=== PATIENT | female | born 1995 | race Asian ===

== ENCOUNTER 2017-01-07 15:39 | Inpatient (IN) | payer BC ==
[~2017-01-07] VITALS: Ht 154.9 cm; Wt 52.0 kg
[2017-01-07 15:47] VITALS: BP 136/76; PULSE 97; RESP 16; TEMP 99.9; O2SAT 99
[2017-01-07] MEDS ORDERED: SODIUM CHLOR 0.9% 1000 ML INJ 1,000 ML IV SCH (15:51)
[2017-01-07] MEDS ORDERED: BIRTH CONTROL PO (15:53)
[2017-01-07] MEDS ORDERED: CLINDAMYCIN INJ 600 MG in SODIUM CHLORIDE 0.9% INJ 100 ML IV ONE (16:00)
[2017-01-07] MEDS ORDERED: methylPREDNISolone SOD SUCC 125 MG/2 ML VIAL IV PUSH ONE (16:00)
--- NOTE | 2017-01-07 16:34 | PD ---
HPI Chief Complaint: ENT Complaint Time Seen by Provider: 15:50 Travel History International Travel<30 days: No Contact w/Intl Traveler<30days: No Traveled to known affect area: No History of Present Illness HPI 21-year-old female that presents to the ED for evaluation of peritonsillar abscess. Patient was seen at an urgent care and apparently was seen at a different urgent care before. Patient was seen in urgent care about a couple of weeks ago and was started on amoxicillin. Symptoms do not improve. Patient went to a different urgent care was turned azithromycin and a Medrol Dosepak. Patient was evaluated again today by a different urgent care and the physician at the facility order a CT with contrast. CT was done and was found to have a peritonsillar abscess. She was told to come here for possible surgery versus IV antibiotics. Apparently the physician at the urgent care contacted Dr. Galeana for ear nose and throat who agreed with this plan. Patient voices pain on her throat secondary to the swelling. She states that she cannot swallow solid secondary to pain. She denies any discharge. She is able to breathe no sign of acute distress. She denies any fevers chills or sweats. She denies any history of this in the past. Allergy to possibly iodine. [facility] Past Medical History Medical History: Denies Significant Hx ?: Not Past Surgical History Surgical History: No Previous Surgery Social History Alcohol Use: Yes (SOCIALLY) Tobacco Use: No Substance Use: Yes (MARIJUANA) Allergies-Medications (Allergen,Severity, Reaction): Coded Allergies: Iodinated Contrast- Oral and IV Dye (Verified Allergy, Severe, Hives, ) Reported Meds & Prescriptions Reported Meds & Active Scripts Active Reported [ Control] 1 Tab PO DAILY Review of Systems Except as stated in HPI: all other systems reviewed are Neg Physical Exam Narrative GENERAL: SKIN: Warm and dry. HEAD: Atraumatic. Normocephalic. EYES: Pupils equal and round. No scleral icterus. No injection or drainage. ENT: No nasal bleeding or discharge. Mucous membranes pink and moist. Tongue is midline. Patient does have soft tissue swelling of both tonsils. Hard to assess secondary to patient's discomfort. No obvious uvula deviation noted however. Patient does have some hoarse voice noted. Some anterior cervical lymphadenopathy noted. NECK: Trachea midline. No JVD. CARDIOVASCULAR: Regular rate and rhythm. RESPIRATORY: No accessory muscle use. Clear to auscultation. Breath sounds equal bilaterally. GASTROINTESTINAL: Abdomen soft, non-tender, nondistended. Hepatic and splenic margins not palpable. MUSCULOSKELETAL: Extremities without clubbing, cyanosis, or edema. No obvious deformities. Full range of motion of the upper and lower extremities bilaterally. 2+ pulses bilaterally. NEUROLOGICAL: Awake and alert. No obvious cranial nerve deficits. Motor grossly within normal limits. Five out of 5 muscle strength in the arms and legs. Normal speech. PSYCHIATRIC: Appropriate mood and affect; insight and judgment normal. Data Data Last Documented VS Vital Signs Date Time Temp Pulse Resp B/P (MAP) Pulse Ox O2 Delivery O2 Flow Rate FiO2 01/07/17 17:15 100.3 92 20 119/70 (86) 100 Room Air Orders Orders Methylprednisolone So Succ Inj (Solumedr (01/07/17 16:00) Clindamycin Inj (Cleocin Inj) (01/07/17 16:00) Complete Blood Count With Diff (01/07/17 15:51) Basic Metabolic Panel (Bmp) (01/07/17 15:51) Magnesium (Mg) (01/07/17 15:51) Lactic Acid (01/07/17 15:51) Sodium Chlor 0.9% 1000 Ml Inj (Ns 1000 M (01/07/17 15:51) Ketorolac Inj (Toradol Inj) (01/07/17 16:45) Labs Laboratory Tests Test 01/07/17 16:20 White Blood Count 15.6 TH/MM3 Red Blood Count 4.28 MIL/MM3 Hemoglobin 11.8 GM/DL Hematocrit 35.8 % Mean Corpuscular Volume 83.8 FL Mean Corpuscular Hemoglobin 27.5 PG Mean Corpuscular Hemoglobin Concent 32.9 % Red Cell Distribution Width 13.1 % Platelet Count 279 TH/MM3 Mean Platelet Volume 8.8 FL Neutrophils (%) (Auto) 85.3 % Lymphocytes (%) (Auto) 7.1 % Monocytes (%) (Auto) 7.4 % Eosinophils (%) (Auto) 0.1 % Basophils (%) (Auto) 0.1 % Neutrophils # (Auto) 13.3 TH/MM3 Lymphocytes # (Auto) 1.1 TH/MM3 Monocytes # (Auto) 1.2 TH/MM3 Eosinophils # (Auto) 0.0 TH/MM3 Basophils # (Auto) 0.0 TH/MM3 CBC Comment DIFF FINAL Differential Comment Blood Urea Nitrogen 7 MG/DL Creatinine 0.61 MG/DL Random Glucose 82 MG/DL Calcium Level 8.1 MG/DL Magnesium Level 1.9 MG/DL Sodium Level 136 MEQ/L Potassium Level 3.6 MEQ/L Chloride Level 106 MEQ/L Carbon Dioxide Level 22.1 MEQ/L Anion Gap 8 MEQ/L Estimat Glomerular Filtration Rate 126 ML/MIN Lactic Acid Level 2.0 mmol/L MDM Medical Decision Making Medical Screen Exam Complete: Yes Emergency Medical Condition: Yes Medical Record Reviewed: Yes Interpretation(s) CT report from today shows a large a thorough Maria C is lesion involving the right tonsillar pillar with central low attenuation Cinti Faywood separations. Given the patient's clinical presentation bilateral lymphadenopathy this likely represents a complicated abscess. Abscess is about 3.6 cm x 3.6 cm and by 2.2 cm. CBC & BMP Diagram 01/07/17 16:20 Calcium Level 8.1 L, Magnesium Level 1.9 Differential Diagnosis Tonsillar abscess versus peritonsillar abscess versus pharyngitis Narrative Course 21-year-old female that presents to the ED for evaluation of tonsillar abscess. Patient was properly examined and was found to have signs and symptoms which appear to be consistent with tonsillar abscess. Patient came here with notes from the urgent care at that she was seen at as well as the CT report. CT report shows abscess. Apparently the previous physician in the urgent care called Dr. Glover who is on-call for ear nose and throat today. I contacted Dr. Glover today and he agreed to admit to medical service for IV antibiotics and steroids. He recommends cleaning and icing every 6 hours and he will reassess tomorrow to see whether patient is a candidate for drainage but he believes that with medication alone this might improve with no need for drainage. IV was started, patient was turned clindamycin and Solu-Medrol. Labs showed. [facility] was paged. Dr Villa Sepsis Criteria SIRS Criteria (2 or more): Heart rate over 90, WBC > 86440, < 4000 or > 10% bands Sepsis Criteria (SIRS+source): Infect source susp/known Criteria Outcome: Meets sepsis criteria Diagnosis Primary Impression: Peritonsillar abscess Additional Impression: Sepsis Qualified Codes: A41.9 - Sepsis, unspecified organism Admitting Information Admitting Physician Requests: Admit Surya Copeland Jan 07, 2017 16:34
[2017-01-07 16:39] LABS: AUTOMATED NEUTROPHIL # 13.3 TH/MM3 (1.8-7.7); BASOPHIL % 0.1 % (0.0-2.0); EOSINOPHIL % 0.1 % (0.0-4.0); HEMATOCRIT 35.8 % (35.0-46.0); HEMO FLAGS DIFF FINAL; LYMPH % 7.1 % (9.0-44.0); LYMPHOCYTE # 1.1 TH/MM3 (1.0-4.8); MEAN CELL VOLUME 83.8 FL (80.0-100.0); MEAN CORPUSCULAR HEMOGLOBIN 27.5 PG (27.0-34.0); MEAN CORPUSCULAR HGB CONC 32.9 % (32.0-36.0); MONO % 7.4 % (0.0-8.0); NEUT % 85.3 % (16.0-70.0); PLATELET COUNT 279 TH/MM3 (150-450); RED BLOOD COUNT 4.28 MIL/MM3 (4.00-5.30); RED CELL DISTRIBUTION WIDTH 13.1 % (11.6-17.2); WHITE BLOOD COUNT 15.6 TH/MM3 (4.0-11.0)
[2017-01-07] MEDS ORDERED: KETOROLAC TROMETHAMINE 30 MG/ML (IVP) VIAL IV PUSH ONE (16:45)
[2017-01-07 16:53] LABS: BICARBONATE 22.1 MEQ/L (21.0-32.0); MAGNESIUM 1.9 MG/DL (1.5-2.5); POTASSIUM 3.6 MEQ/L (3.5-5.1)
[2017-01-07 17:15] VITALS: BP 119/70; PULSE 92; RESP 20; TEMP 100.3; O2SAT 100
--- NOTE | 2017-01-07 18:26 | HHI.HP ---
[facility]ician Unknown Admission Diagnosis acute peritonsilar abcess, sepsis Diagnoses: Chief Complaint: pain and difficulty swallowing Travel History International Travel<30 Days: No Contact w/Intl Traveler <30 Da: No Traveled to Known Affected Are: No Sepsis Criteria SIRS Criteria (2 or more): Temp > 100.9 or < 96.8, Heart rate over 90 Sepsis Criteria (SIRS+source): Infect source susp/known Criteria Outcome: Meets sepsis criteria History of Present Illness Patient is a 21-year-old female who presented to the ER with fever or chills throat pain. Symptoms started about 4 weeks ago and patient complained of throat pain on evaluation as an outpatient was prescribed amoxicillin for 7 days. Patient states improvement in symptoms and did not finish the course of 10 days as instructed. About a week later symptoms recurred and was another given another course of amoxicillin. Interim- patient felt better however 5 days ago but symptoms recurred this time with low-grade fever and chills. The patient complains of pain when talking and swallowing. denies any shortness of breath This time was given Zithromax plus Medrol dose pack which she had taken for about 4 days now. Patient reports no improvement in symptoms. Patient was sent for CT as an outpatient and results came back positive for possible right tonsillar abscess. Patient sent here and admitted for IV antibiotics and further evaluation by ENT. Patient denies any previous episodes of recurrent infections of the throat in the past prior to this Review of Systems Constitutional: DENIES: Diaphoretic episodes, Fatigue, Fever, Weight gain, Weight loss, Chills, Dizziness, Change in appetite, Night Sweats Endocrine: DENIES: Abnorml menstrual pattern, Heat/cold intolerance, Polydipsia , Polyuria, Polyphagia Eyes: DENIES: Blurred vision, Diplopia, Eye inflammation, Eye pain, Vision loss , Photosensitivity, Double Vision Ears, nose, mouth, throat: COMPLAINS OF: Throat pain, DENIES: Tinnitus, Hearing loss, Vertigo, Nasal discharge, Oral lesions, Hoarseness, Ear Pain, Running Nose, Epistaxis, Sinus Pain, Toothache, Odynophagia Respiratory: DENIES: Apneas, Cough, Snoring, Wheezing, Hemoptysis, Sputum production, Shortness of breath Genitourinary: DENIES: Abnormal vaginal bleeding, Dysmenorrhea, Dyspareunia, Sexual dysfunction, Urinary frequency, Urinary incontinence, Urgency, Hematuria , Dysuria, Nocturia, Vaginal discharge Musculoskeletal: DENIES: Joint pain, Muscle aches, Stiffness, Joint Swelling, Back pain, Neck pain Integumentary: DENIES: Abnormal pigmentation, Pruritus, Rash, Nail changes, Breast masses, Breast skin changes, Nipple discharge Hematologic/lymphatic: DENIES: Bruising, Lymphadenopathy Immunologic/allergic: DENIES: Eczema, Urticaria Neurologic: DENIES: Abnormal gait, Headache, Localized weakness, Paresthesias, Seizures, Speech Problems, Tremor, Poor Balance Psychiatric: DENIES: Anxiety, Confusion, Mood changes, Depression, Hallucinations, Agitation, Suicidal Ideation, Homicidal Ideation, Delusions Past Family Social History Past Medical History No significant past medical history no history of recurrent tonsillar infections prior to this month. Past Surgical History None Reported Medications Medrol Dosepak Zithromax On oral contraceptive pills Allergies: Coded Allergies: Iodinated Contrast- Oral and IV Dye (Verified Allergy, Severe, Hives, ) Family History Noncontributory Social History Mother smokes 3-4 sticks in a week. Occasionally smokes "pot" Very rare alcohol use Denies IV drug use Physical Exam Vital Signs Vital Signs Date Time Temp Pulse Resp B/P (MAP) Pulse Ox O2 Delivery O2 Flow Rate FiO2 01/07/17 17:15 100.3 92 20 119/70 (86) 100 Room Air 01/07/17 15:47 99.9 97 16 136/76 (96) 99 Physical Exam GENERAL: This is a well-nourished, well-developed patient, in no apparent distress. Heart rate 106 SKIN: No rashes, ecchymoses or lesions. Cool and dry. HEAD: Atraumatic. Normocephalic. No temporal or scalp tenderness. EYES: Pupils equal round and reactive. Extraocular motions intact. No scleral icterus. No injection or drainage. ENT: Nose without bleeding, throat with erythema bilaterally and large tonsils some exudates noted on the right tonsillar area NECK: Trachea midline.. Multiple discrete small posterior cervical lymphadenopathy. Supple, nontender, no meningeal signs. CARDIOVASCULAR: Tachycardic, heart rate of 106 rhythm without murmurs, gallops, or rubs. RESPIRATORY: Clear to auscultation. Breath sounds equal bilaterally. No wheezes , rales, or rhonchi. GASTROINTESTINAL: Abdomen soft, non-tender, nondistended. No hepato-splenomegaly , or palpable masses. No guarding. MUSCULOSKELETAL: Extremities without clubbing, cyanosis, or edema. No joint tenderness, effusion, or edema noted. No calf tenderness. Negative Homans sign bilaterally. NEUROLOGICAL: Awake and alert. Cranial nerves II through XII intact. Motor and sensory grossly within normal limits. Five out of 5 muscle strength in all muscle groups. Normal speech. Laboratory Laboratory Tests Test 01/07/17 16:20 White Blood Count 15.6 Red Blood Count 4.28 Hemoglobin 11.8 Hematocrit 35.8 Mean Corpuscular Volume 83.8 Mean Corpuscular Hemoglobin 27.5 Mean Corpuscular Hemoglobin Concent 32.9 Red Cell Distribution Width 13.1 Platelet Count 279 Mean Platelet Volume 8.8 Neutrophils (%) (Auto) 85.3 Lymphocytes (%) (Auto) 7.1 Monocytes (%) (Auto) 7.4 Eosinophils (%) (Auto) 0.1 Basophils (%) (Auto) 0.1 Neutrophils # (Auto) 13.3 Lymphocytes # (Auto) 1.1 Monocytes # (Auto) 1.2 Eosinophils # (Auto) 0.0 Basophils # (Auto) 0.0 CBC Comment DIFF FINAL Differential Comment Blood Urea Nitrogen 7 Creatinine 0.61 Random Glucose 82 Calcium Level 8.1 Magnesium Level 1.9 Sodium Level 136 Potassium Level 3.6 Chloride Level 106 Carbon Dioxide Level 22.1 Anion Gap 8 Estimat Glomerular Filtration Rate 126 Lactic Acid Level 2.0 Result Diagram: 01/07/17 1620 01/07/17 1620 Caprini VTE Risk Assessment Caprini VTE Risk Assessment: Mod/High Risk (score >= 2) VTE Pharm Contraindication: Hemorrhage Caprini Risk Assessment Model Point Value = 1 Point Value = 2 Point Value = 3 Point Value = 5 Age 41-60 Minor surgery BMI > 25 kg/m2 Swollen legs Varicose veins or History of unexplained or recurrent spontaneous Oral contraceptives or hormone replacement Sepsis (< 1 month) Serious lung disease, including pneumonia (< 1 month) Abnormal pulmonary function Acute myocardial infarction Congestive heart failure (< 1 month) History of inflammatory bowel disease Medical patient at bed rest Age 61-74 Arthroscopic surgery Major open surgery (> 45 min) Laparoscopic surgery (> 45 min) Malignancy Confined to bed (> 72 hours) Immobilizing plaster cast Central venous access Age >= 75 History of VTE Family history of VTE Factor V Leiden Prothrombin [id number] Lupus anticoagulant Anticardiolipin antibodies Elevated serum homocysteine Heparin-induced thrombocytopenia Other congenital or acquired thrombophilia Stroke (< 1 month) Elective arthroplasty Hip, pelvis, or leg fracture Acute spinal cord injury (< 1 month) Prophylaxis Regimen Total Risk Factor Score Risk Level Prophylaxis Regimen 0-1 Low Early ambulation 2 Moderate Order ONE of the following: *Sequential Compression Device (SCD) *Heparin 5000 units SQ BID 3-4 Higher Order ONE of the following medications: *Heparin 5000 units SQ TID *Enoxaparin/Lovenox 40 mg SQ daily (WT < 150 kg, CrCl > 30 mL/min) *Enoxaparin/Lovenox 30 mg SQ daily (WT < 150 kg, CrCl > 10-29 mL/min) *Enoxaparin/Lovenox 30 mg SQ BID (WT < 150 kg, CrCl > 30 mL/min) AND/OR *Sequential Compression Device (SCD) 5 or more Highest Order ONE of the following medications: *Heparin 5000 units SQ TID (Preferred with Epidurals) *Enoxaparin/Lovenox 40 mg SQ daily (WT < 150 kg, CrCl > 30 mL/min) *Enoxaparin/Lovenox 30 mg SQ daily (WT < 150 kg, CrCl > 10-29 mL/min) *Enoxaparin/Lovenox 30 mg SQ BID (WT < 150 kg, CrCl > 30 mL/min) AND *Sequential Compression Device (SCD) Assessment and Plan Assessment and Plan 21-year-old female presenting with Sepsis secondary to bilateral tonsillitis with right peritonsillar abscess on CT - failed multiple courses of by mouth antibiotics as OP. Patient started on IV steroids- Decadron 4 mg IV q 6. Started on IV clindamycin 600 mg IV q 8 ENT consulted. Occasional marijuana use counseled. PPI for GI prophylaxis Encourage increased ambulation Code Status full Physician Certification 2 Midnight Certification Type: Admission for Inpatient Services Order for Inpatient Services The services are ordered in accordance with Medicare regulations or non- Medicare payer requirements, as applicable. In the case of services not specified as inpatient-only, they are appropriately provided as inpatient services in accordance with the 2-midnight benchmark. Estimated LOS (days): 3 days is the estimated time the patient will need to remain in the hospital, assuming treatment plan goals are met and no additional complications. Post-Hospital Plan: Not yet determined Carly Veronica MD Jan 07, 2017 18:26
[2017-01-07 18:48] VITALS: BP 123/80; PULSE 95; RESP 20; TEMP 99.9; O2SAT 100
[2017-01-07 19:05] VITALS: BP 120/75; PULSE 90; RESP 20; O2SAT 100
[2017-01-07 20:00] VITALS: BP 123/71; PULSE 88; RESP 18; TEMP 98.1; O2SAT 98
[2017-01-07] MEDS ORDERED: PANTOPRAZOLE SODIUM 40 MG VIAL IV PUSH SCH (20:00)
[2017-01-07] MEDS: POTASSIUM CHLORIDE INJ 10 MEQ in SODIUM CHLOR 0.9% 1000 ML INJ 1,000 ML IV SCH (21:30)
[2017-01-07] MEDS: CLINDAMYCIN INJ 600 MG in SODIUM CHLORIDE 0.9% INJ 100 ML IV SCH (23:27)
[2017-01-08] VITALS: BP 111/62; PULSE 76; RESP 18; TEMP 96.2; O2SAT 98
[2017-01-08] MEDS: POTASSIUM CHLORIDE INJ 10 MEQ in SODIUM CHLOR 0.9% 1000 ML INJ 1,000 ML IV SCH (06:03)
[2017-01-08] MEDS: CLINDAMYCIN INJ 600 MG in SODIUM CHLORIDE 0.9% INJ 100 ML IV SCH (06:30)
[2017-01-08 08:00] VITALS: BP 109/73; PULSE 87; RESP 17; TEMP 97; O2SAT 96
--- NOTE | 2017-01-08 08:12 | PD.CONS ---
History of Present Illness Service ENT Consult Requested By ED Reason for Consult Tonsillitis, peritonsillar abscess. Primary Care Physician Unknown Diagnoses: History of Present Illness 21 year old female. 1 month tonsillitis. Initially undertreated with Amoxil. She did not finish course. Restarted on medrol pack and zpack this week, but developed tonsillar abscess. Place on IV Clindamycin and Decadron with substantial improvement overnight. Review of Systems Constitutional: DENIES: Fever Ears, nose, mouth, throat: COMPLAINS OF: Throat pain, Odynophagia, DENIES: Nasal discharge, Oral lesions, Hoarseness Past Family Social History Allergies: Coded Allergies: Iodinated Contrast- Oral and IV Dye (Verified Allergy, Severe, Hives, ) Physical Exam Vital Signs Vital Signs Date Time Temp Pulse Resp B/P (MAP) Pulse Ox O2 Delivery O2 Flow Rate FiO2 01/08/17 00:00 96.2 76 18 111/62 (78) 98 01/07/17 20:00 98.1 88 18 123/71 (88) 98 01/07/17 19:26 01/07/17 19:05 90 20 120/75 (90) 100 Room Air 01/07/17 18:48 99.9 95 20 123/80 (94) 100 Room Air 01/07/17 18:00 20 01/07/17 17:15 100.3 92 20 119/70 (86) 100 Room Air 01/07/17 15:47 99.9 97 16 136/76 (96) 99 Physical Exam GENERAL: This is a well-nourished, well-developed patient, in no apparent distress. SKIN: No rashes, ecchymoses or lesions. Cool and dry. HEAD: Atraumatic. Normocephalic. No temporal or scalp tenderness. EYES: Pupils equal round and reactive. Extraocular motions intact. No scleral icterus. No injection or drainage. ENT: Nose without bleeding, purulent drainage or septal hematoma. Throat without erythema, tonsillar hypertrophy or exudate. Uvula midline. Airway patent. NECK: Trachea midline. No JVD or lymphadenopathy. Supple, nontender, no meningeal signs. NEUROLOGICAL: Awake and alert. Normal speech. Laboratory Laboratory Tests Test 01/07/17 16:20 White Blood Count 15.6 Red Blood Count 4.28 Hemoglobin 11.8 Hematocrit 35.8 Mean Corpuscular Volume 83.8 Mean Corpuscular Hemoglobin 27.5 Mean Corpuscular Hemoglobin Concent 32.9 Red Cell Distribution Width 13.1 Platelet Count 279 Mean Platelet Volume 8.8 Neutrophils (%) (Auto) 85.3 Lymphocytes (%) (Auto) 7.1 Monocytes (%) (Auto) 7.4 Eosinophils (%) (Auto) 0.1 Basophils (%) (Auto) 0.1 Neutrophils # (Auto) 13.3 Lymphocytes # (Auto) 1.1 Monocytes # (Auto) 1.2 Eosinophils # (Auto) 0.0 Basophils # (Auto) 0.0 CBC Comment DIFF FINAL Differential Comment Blood Urea Nitrogen 7 Creatinine 0.61 Random Glucose 82 Calcium Level 8.1 Magnesium Level 1.9 Sodium Level 136 Potassium Level 3.6 Chloride Level 106 Carbon Dioxide Level 22.1 Anion Gap 8 Estimat Glomerular Filtration Rate 126 Lactic Acid Level 2.0 Result Diagram: 01/07/17 1620 01/07/17 162 Assessment and Plan Assessment and Plan Much improved tonsillitis and [employer]. Suggest she continue IV therapy this morning. Can discharge this afternoon on Clindamycin 300 mg TID for 1 week. Advised patient she needs to finish this course completely. She can finish her current Medrol dose pack starting tomorrow. Follow as outpatient as needed. Not interested in an interval tonsillectomy at this time. ENT prn. Discussed Condition With patient and her Nurse. Micah Glover MD Jan 08, 2017 08:12
--- NOTE | 2017-01-08 08:37 | HHI.PR ---
Subjective Remarks uch better .Tolerates food. No pain at this time. No n/v/d/c. Denies fever or chills. No respiratory problems. No wheezing. Feels comfortable to go home. Advised to finish the course of abx expressed understanding. Objective Vitals Vital Signs Date Time Temp Pulse Resp B/P (MAP) Pulse Ox O2 Delivery O2 Flow Rate FiO2 01/08/17 08:00 97.0 87 17 109/73 (85) 96 01/08/17 00:00 96.2 76 18 111/62 (78) 98 01/07/17 20:00 98.1 88 18 123/71 (88) 98 01/07/17 19:26 01/07/17 19:05 90 20 120/75 (90) 100 Room Air 01/07/17 18:48 99.9 95 20 123/80 (94) 100 Room Air 01/07/17 18:00 20 01/07/17 17:15 100.3 92 20 119/70 (86) 100 Room Air 01/07/17 15:47 99.9 97 16 136/76 (96) 99 I/O 01/07/17 01/07/17 01/07/17 01/08/17 01/08/17 01/08/17 07:00 15:00 23:00 07:00 15:00 23:00 Intake Total 1200 ml 955 ml 254 ml Balance 1200 ml 955 ml 254 ml Intake IV Total 1200 ml 955 ml 254 ml # Voids 3 Result Diagram: 01/07/17 1620 01/07/17 1620 Objective Remarks GENERAL: This is a well-nourished, well-developed patient, in no apparent distress. Heart rate 106 CARDIOVASCULAR: Tachycardic, heart rate of 106 rhythm without murmurs, gallops, or rubs. RESPIRATORY: Clear to auscultation. Breath sounds equal bilaterally. No wheezes , rales, or rhonchi. GASTROINTESTINAL: Abdomen soft, non-tender, nondistended. No hepato-splenomegaly , or palpable masses. No guarding. MUSCULOSKELETAL: Extremities without clubbing, cyanosis, or edema. No joint tenderness, effusion, or edema noted. No calf tenderness. Negative Homans sign bilaterally. NEUROLOGICAL: Awake and alert. Cranial nerves II through XII intact. Motor and sensory grossly within normal limits. Five out of 5 muscle strength in all muscle groups. Normal speech. A/P Assessment and Plan 21-year-old female presenting with Sepsis secondary to bilateral tonsillitis with right peritonsillar abscess on CT - failed multiple courses of by mouth antibiotics as OP. Patient started on IV steroids- Decadron 4 mg IV q 6. Started on IV clindamycin 600 mg IV q 8 ENT consulted, seen by Dr Glover recommends Clindamycin 300 mg TID for 1 week. She can finish her current Medrol dose pack starting tomorrow. Follow as outpatient as needed. Not interested in an interval tonsillectomy at this time. ENT prn. Occasional marijuana use counseled. PPI for GI prophylaxis Encourage increased ambulation DVT ppx ambulation Discharge Planning DC home in stable condition to follow up as OP with PCP and if need with ENT Meds per med reconciliations, finish course of antibiotic Diet regular as tolerated Activity ad mi as tolerated Yamileth Myrick MD Jan 08, 2017 08:37
[2017-01-08] MEDS ORDERED: MEDR4PAK PO (08:40)
[2017-01-08] MEDS ORDERED: LACTCHW3 CHEW (08:40)
[2017-01-08] MEDS ORDERED: CLIN1CAP6 PO (08:40)
--- NOTE | 2017-01-08 08:40 | HHI.DCPOC ---
Discharge Care Plan Goals to Promote Your Health * To prevent worsening of your condition and complications * To maintain your health at the optimal level Directions to Meet Your Goals Take your medications as prescribed Follow your dietary instruction Follow activity as directed Keep your appointments as scheduled Take your immunizations and boosters as scheduled If your symptoms worsen call your PCP, if no PCP go to Urgent Care Center or Emergency Room Smoking is Dangerous to Your Health. Avoid second hand smoke Call the 24-hour hour crisis hotline for domestic abuse at Yamileth Myrick MD Jan 08, 2017 08:40
[2017-01-08] MEDS ORDERED: DEXAMETHASONE SOD PHOS 4 MG/ML VIAL IV PUSH SCH (22:00)
== END 2017-01-08 12:42 | disposition home or self-care (01) | DRG 872 ==
LOC: NEPE 15:39 → NEDA 17:38 → N07A 19:29
PROVIDERS: ADMIT Hospitalist; ATTEND Hospitalist
DX: A41.9 Sepsis, unspecified organism (principal); J36 Peritonsillar abscess; J03.90 Acute tonsillitis, unspecified; F12.90 Cannabis use, unspecified, uncomplicated
CPT/HCPCS: 80048; 83605; 83735; 85025; 96365; 96375; C9113; J1885; J2930; J3480; J7030

== ENCOUNTER 2017-04-16 12:24 | Observation (INO) | payer BC ==
[~2017-04-16] VITALS: Ht 154.9 cm; Wt 50.0 kg
[~2017-04-16 12:24] MED LIST: BIRTH CONTROL PO; CLIN300C5 PO; LACTCHW3 CHEW; MEDR4PAK PO
[2017-04-16 12:26] VITALS: BP 108/80; PULSE 111; RESP 16; TEMP 99.2; O2SAT 99
--- NOTE | 2017-04-16 12:50 | PD ---
HPI Chief Complaint: ENT Complaint Time Seen by Provider: 12:39 Travel History International Travel<30 days: No Contact w/Intl Traveler<30days: No Traveled to known affect area: No History of Present Illness HPI 21-year-old female presents to the emergency department for evaluation of sore throat. Patient has history of peritonsillar abscess. She states that she was seen at urgent care clinic 2 days ago was started on prednisolone and amoxicillin. She is taken 5 doses of her amoxicillin and states her symptoms are worsening. She also reports cough and congestion. Patient has a hoarse voice noted on exam. She denies any chronic medical problems. She is on control and denies . Moderate severity. No exacerbating or alleviating factors. PFSH Past Medical History Cancer: No Cardiovascular Problems: No Endocrine: No Gastrointestinal Disorders: No Genitourinary: No Immune Disorder: No Implanted Vascular Access Dvce: No Musculoskeletal: No Neurologic: No Psychiatric: No Reproductive: No Respiratory: No ?: Not Past Surgical History Other Surgery: No Social History Alcohol Use: Yes (SOCIALLY) Tobacco Use: No Substance Use: No Allergies-Medications (Allergen,Severity, Reaction): Coded Allergies: Iodinated Contrast- Oral and IV Dye (Verified Allergy, Severe, Hives, 04/16) Reported Meds & Prescriptions Reported Meds & Active Scripts Active Medrol Dosepak (Methylprednisolone) 4 Mg Dspk 4 Mg PO DIRECTED Per Pharmacist direction Lactinex (Lactobacillus Acidophilus) 1 Chew 1 Tab CHEW DAILY 30 Days Clindamycin (Clindamycin HCl) 300 Mg Cap 300 Mg PO TID Reported [ Control] 1 Tab PO DAILY Review of Systems Except as stated in HPI: all other systems reviewed are Neg Physical Exam Narrative GENERAL: Well-nourished, well-developed female patient, ambulatory. Afebrile. SKIN: Focused skin assessment warm/dry. HEAD: Normocephalic. Atraumatic. ENT: Mucosa pink and moist. Uvula is midline. Right tonsil is significantly larger, but left tonsil is also enlarged. No uvular edema. No uvular, palatal, or tonsillar deviation. Airway patent. Nasal turbinates appear normal without nasal blood, purulent drainage or septal hematoma. Bilateral tympanic membranes are clear without erythema or perforation. EYES: No scleral icterus. No injection or drainage. NECK: Supple, trachea midline. No JVD or lymphadenopathy. CARDIOVASCULAR: Regular rate and rhythm without murmurs, gallops, or rubs. RESPIRATORY: Breath sounds equal bilaterally. No accessory muscle use. Lungs sounds are clear to auscultation. GASTROINTESTINAL: Abdomen soft, non-tender, nondistended. MUSCULOSKELETAL: No cyanosis, or edema. BACK: Nontender without obvious deformity. No CVA tenderness. Data Data Last Documented VS Vital Signs Date Time Temp Pulse Resp B/P (MAP) Pulse Ox O2 Delivery O2 Flow Rate FiO2 04/16/17 15:49 76 18 104/62 (76) 98 Room Air 04/16/17 12:26 99.2 Orders Orders Complete Blood Count With Diff (04/16/17 12:47) Basic Metabolic Panel (Bmp) (04/16/17 12:47) Iv Access Insert/Monitor (04/16/17 12:47) Lactic Acid Sepsis Protocol (04/16/17 12:47) Ct Soft Tiss Neck W/O Iv Cont (04/16/17 ) Ed Urine Pregnancytest Poc (04/16/17 12:47) Sodium Chlor 0.9% 1000 Ml Inj (Ns 1000 M (04/16/17 13:00) Dexamethasone Inj (Decadron Inj) (04/16/17 13:00) Clindamycin 600 Mg/Ns Premix (Cleocin 60 (04/16/17 13:00) Group A Rapid Strep Screen (04/16/17 12:50) Monoscreen (04/16/17 12:50) Strep Culture (Group A) (04/16/17 13:08) Dexamethasone Inj (Decadron Inj) (04/16/17 15:15) Clindamycin 300 Mg/Ns Premix (Cleocin 30 (04/16/17 15:15) Sodium Chlorid 0.9% 500 Ml Inj (Ns 500 M (04/16/17 15:15) Admit Order (Ed Use Only) (04/16/17 15:50) Consult Ent (04/16/17 ) Labs Laboratory Tests Test 04/16/17 13:08 04/16/17 13:15 White Blood Count 11.7 TH/MM3 Red Blood Count 4.75 MIL/MM3 Hemoglobin 13.2 GM/DL Hematocrit 39.5 % Mean Corpuscular Volume 83.2 FL Mean Corpuscular Hemoglobin 27.9 PG Mean Corpuscular Hemoglobin Concent 33.5 % Red Cell Distribution Width 13.1 % Platelet Count 209 TH/MM3 Mean Platelet Volume 9.0 FL Neutrophils (%) (Auto) 77.1 % Lymphocytes (%) (Auto) 13.8 % Monocytes (%) (Auto) 8.4 % Eosinophils (%) (Auto) 0.5 % Basophils (%) (Auto) 0.2 % Neutrophils # (Auto) 9.0 TH/MM3 Lymphocytes # (Auto) 1.6 TH/MM3 Monocytes # (Auto) 1.0 TH/MM3 Eosinophils # (Auto) 0.1 TH/MM3 Basophils # (Auto) 0.0 TH/MM3 CBC Comment DIFF FINAL Differential Comment Blood Urea Nitrogen 14 MG/DL Creatinine 0.83 MG/DL Random Glucose 86 MG/DL Calcium Level 8.7 MG/DL Sodium Level 139 MEQ/L Potassium Level 3.4 MEQ/L Chloride Level 105 MEQ/L Carbon Dioxide Level 28.4 MEQ/L Anion Gap 6 MEQ/L Estimat Glomerular Filtration Rate 89 ML/MIN Monoscreen NEG Lactic Acid Level 1.2 mmol/L MDM Medical Decision Making Medical Screen Exam Complete: Yes Emergency Medical Condition: Yes Medical Record Reviewed: Yes Interpretation(s) Last Impressions Neck CT 04/16/17 0000 Signed Impressions: Service Date/Time: Sunday, April 16, 2017 14:13 - CONCLUSION: Asymmetric tonsillar edema on the right with rounded low density area suspicious for abscess. Well-defined wall not demonstrated on this noncontrast study. Davis Alba MD Differential Diagnosis peritonsillar abscess versus strep pharyngitis versus mononucleosis Narrative Course 21-year-old female presents to the emergency department reevaluation of tonsillitis. She is on amoxicillin without improvement. Patient has history of peritonsillar abscess and the previous chart, symptoms were similar to this. IV access established. CBC, BMP, lactic acid, mononucleosis, strep pharyngitis are ordered and pending. CT soft tissue neck without contrast is ordered due to the fact the patient is allergic to contrast. Patient is given normal saline 1 L IV bolus, dexamethasone 8 mg IV, clindamycin 600 mg IV. CBC shows leukocytosis 11.7. BMP shows no acute abnormality. Lactic acid is 1.2. Mononucleosis is negative. Strep is negative. UPT is negative. CT soft tissue neck shows asymmetric tonsillar edema on the right with rounded low- density area suspicious for abscess. Well-defined wall not demonstrated on this noncontrast study. I contacted the ENT physician on-call, Dr. Aleman. He recommends admission with clindamycin 900 mg IV every 8 hours, Decadron 10 mg IV every 8 hours, 1.5 L IV bolus and maintenance fluids after. An additional 2 mg of Decadron, clindamycin 300 mg IV are ordered. An additional 500ml normal normal saline bolus is ordered. Dr. Myrick accepted admission. Diagnosis Primary Impression: Peritonsillar abscess Admitting Information Admitting Physician Requests: Observation Khadijah Argueta Apr 16, 2017 12:50
[2017-04-16] MEDS ORDERED: SODIUM CHLOR 0.9% 1000 ML INJ 1,000 ML IV ONE (13:00)
[2017-04-16] MEDS ORDERED: CLINDAMYCIN 600 MG/NS PREMIX 50 ML IV ONE (13:00)
[2017-04-16] MEDS ORDERED: DEXAMETHASONE SOD PHOS 4 MG/ML VIAL IV PUSH ONE (13:00)
[2017-04-16 13:43] LABS: BASOPHIL % 0.2 % (0.0-2.0); EOSINOPHIL # 0.1 TH/MM3 (0-0.4); EOSINOPHIL % 0.5 % (0.0-4.0); HEMATOCRIT 39.5 % (35.0-46.0); HEMOGLOBIN 13.2 GM/DL (11.6-15.3); LYMPH % 13.8 % (9.0-44.0); LYMPHOCYTE # 1.6 TH/MM3 (1.0-4.8); MEAN CELL VOLUME 83.2 FL (80.0-100.0); MEAN CORPUSCULAR HEMOGLOBIN 27.9 PG (27.0-34.0); MEAN CORPUSCULAR HGB CONC 33.5 % (32.0-36.0); MONO % 8.4 % (0.0-8.0); NEUT % 77.1 % (16.0-70.0); PLATELET COUNT 209 TH/MM3 (150-450); RED BLOOD COUNT 4.75 MIL/MM3 (4.00-5.30); RED CELL DISTRIBUTION WIDTH 13.1 % (11.6-17.2); WHITE BLOOD COUNT 11.7 TH/MM3 (4.0-11.0)
[2017-04-16 13:58] LABS: BICARBONATE 28.4 MEQ/L (21.0-32.0); CALCIUM 8.7 MG/DL (8.5-10.1); CREATININE 0.83 MG/DL (0.50-1.00)
[2017-04-16 14:04] LABS: MONOSCREEN NEG (NEG)
--- NOTE | 2017-04-16 14:40 | RADRPT ---
EXAM DATE/TIME: 04/16/2017 14:13 [facility] COMPARISON: No previous studies available for comparison. INDICATIONS : Dysphagia for two days. RADIATION DOSE: 13.02 CTDIvol (mGy) MEDICAL HISTORY : None SURGICAL HISTORY : None. ENCOUNTER: Initial ACUITY: 2 days PAIN SCORE: 7/10 LOCATION: Bilateral throat TECHNIQUE: Volumetric scanning of the neck was performed. Using automated exposure control and adjustment of th e mA and/or kV according to patient size, radiation dose was kept as low as reasonably achievable to obtain optimal diagnostic quality images. DICOM format image data is available electronically for re view and comparison. FINDINGS: NASOPHARYNX: The nasopharyngeal airway has a normal configuration. Symmetric prominence of the lymphoid soft tissu es. OROPHARYNX: Asymmetric soft tissue prominence of the right tonsillar pillar. Rounded area of relative low density in this region is suspicious for abscess. LARYNX: The supraglottic, glottic, and infraglottic structures are intact. PARAPHARYNGEAL: The parapharyngeal space is intact. SALIVARY GLANDS: The parotid and submandibular glands are intact. LYMPH NODES: Numerous scattered approximately 1 cm lymph nodes bilaterally, likely reactive. THYROID: Homogeneous enhancement without evidence of nodule. BONES: Unremarkable. CONCLUSION: Asymmetric tonsillar edema on the right with rounded low density area suspicious for abscess. Well-de fined wall not demonstrated on this noncontrast study. Davis Alba MD on April 16, 2017 at 14:33 Board Certified Radiologist. This report was verified electronically.
[2017-04-16] MEDS ORDERED: DEXAMETHASONE SOD PHOS 4 MG/ML VIAL IM ONE (15:15)
[2017-04-16] MEDS ORDERED: CLINDAMYCIN 300 MG/NS PREMIX 50 ML IV ONE (15:15)
[2017-04-16] MEDS ORDERED: SODIUM CHLORID 0.9% 500 ML INJ 500 ML IV ONE (15:15)
[2017-04-16 15:49] VITALS: BP 104/62; PULSE 76; RESP 18; O2SAT 98
[2017-04-16] MEDS ORDERED: ACETAMINOPHEN 325 MG TAB PO PRN (16:00)
[2017-04-16] MEDS ORDERED: ONDANSETRON HCL 4 MG/2 ML VIAL IVP PRN (16:00)
[2017-04-16] MEDS ORDERED: NALOXONE HCL 0.4 MG/ML AMP IV PUSH PRN (16:00)
[2017-04-16] MEDS ORDERED: SODIUM CHLORIDE 0.9% FLUSH 10 ML FLUSH IV FLUSH PRN (16:00)
[2017-04-16] MEDS ORDERED: ACETAMINOPHEN/HYDROcodone 325 MG/5 MG TAB PO PRN (16:00)
[2017-04-16] MEDS ORDERED: MAGNESIUM HYDROXIDE SUSP 30 ML CUP PO PRN (16:00)
[2017-04-16] MEDS ORDERED: LACTULOSE SYRUP 20 GM/30 ML CUP PO PRN (16:00)
[2017-04-16] MEDS ORDERED: BISACODYL 10 MG SUPP RECTAL PRN (16:00)
[2017-04-16] MEDS ORDERED: MORPHINE SULFATE 2 MG/ML INJ IV PUSH PRN (16:00)
[2017-04-16] MEDS ORDERED: SENNOSIDES 8.6 MG TAB PO PRN (16:00)
[2017-04-16 16:52] VITALS: BP 105/69; PULSE 83; RESP 18; TEMP 98; O2SAT 100
[2017-04-16] MEDS ORDERED: ENOXAPARIN SODIUM 40 MG/0.4 ML SYRINGE SQ SCH (17:00)
[2017-04-16] MEDS: SODIUM CHLOR 0.9% 1000 ML INJ 1,000 ML IV SCH (17:02)
--- NOTE | 2017-04-16 18:36 | HHI.HP ---
HPI Service [facility] Primary Care Physician No Primary Care Physician Admission Diagnosis peritonsillar abscess Diagnoses: (1) Peritonsillar abscess Diagnosis: Principal Chief Complaint: Sore throat Travel History International Travel<30 Days: No Contact w/Intl Traveler <30 Da: No Traveled to Known Affected Are: No History of Present Illness Written by Allyssa Andres, acting as scribe for [Ramez] on 04/16/17 at 18:32. 21-year-old with no significant past medical history who presents the ED with complaints of a sore throat, fevers, chills which began three days ago, denies skin rash. Patient states that at firs she thought this was just a normal cold however this did not resolve. She went to an urgent care clinic and was given Prednisone as well as amoxicillin. She reports that soreness did not resolve therefore presented to emergency department today. She reports a history of ongoing issues with her tonsils for the past 4 months. Currently she reports her pain is well-controlled and states that she feels better than she has felt in the past several days. She is no longer having any fevers, chills, denies nausea, vomiting or diarrhea. Patient was administered 8 mg of Decadron IV, and 2 mg of Decadron IM while in the emergency department. She also received clindamycin IV, 1.5 L NS fluid bolus. At the time of my exam she is resting comfortably and in no acute distress. Would like to know how she can avoid from getting this since it has now become a recurrent issue. Review of Systems Except as stated in HPI: all other systems reviewed are Neg Past Family Social History Past Medical History Denies Past Surgical History Denies Reported Medications Reported Meds & Active Scripts Active Medrol Dosepak (Methylprednisolone) 4 Mg Dspk 4 Mg PO DIRECTED Per Pharmacist direction Lactinex (Lactobacillus Acidophilus) 1 Chew 1 Tab CHEW DAILY 30 Days Clindamycin (Clindamycin HCl) 300 Mg Cap 300 Mg PO TID Reported [ Control] 1 Tab PO DAILY Allergies: Coded Allergies: Iodinated Contrast- Oral and IV Dye (Verified Allergy, Severe, Hives, 04/16) Active Ordered Medications Reported Meds & Active Scripts Active Medrol Dosepak (Methylprednisolone) 4 Mg Dspk 4 Mg PO DIRECTED Per Pharmacist direction Lactinex (Lactobacillus Acidophilus) 1 Chew 1 Tab CHEW DAILY 30 Days Clindamycin (Clindamycin HCl) 300 Mg Cap 300 Mg PO TID Reported [ Control] 1 Tab PO DAILY Family History Denies significant family history Social History Smoked for 3 months now using electronic cigarette. Physical Exam Vital Signs Vital Signs Date Time Temp Pulse Resp B/P (MAP) Pulse Ox O2 Delivery O2 Flow Rate FiO2 04/16/17 16:52 98.0 83 18 105/69 (81) 100 04/16/17 16:39 04/16/17 15:49 76 18 104/62 (76) 98 Room Air 04/16/17 12:38 18 04/16/17 12:26 99.2 111 16 108/80 (89) 99 Physical Exam GENERAL: This is a well-nourished, well-developed patient, in no apparent distress. SKIN: No rashes, ecchymoses or lesions. Cool and dry. HEAD: Atraumatic. Normocephalic. No temporal or scalp tenderness. EYES: Pupils equal round and reactive. Extraocular motions intact. No scleral icterus. No injection or drainage. ENT: Nose without bleeding, purulent drainage or septal hematoma. Throat without erythema, enlarged bilateral tonsils, R>L no visible exudate. Uvula midline. Airway patent. NECK: Trachea midline. No JVD or meningeal signs. CARDIOVASCULAR: Regular rate and rhythm without murmurs, gallops, or rubs. RESPIRATORY: Clear to auscultation. Breath sounds equal bilaterally. No wheezes , rales, or rhonchi. GASTROINTESTINAL: Abdomen soft, non-tender, nondistended. No guarding. MUSCULOSKELETAL: Extremities without clubbing, cyanosis, or edema. No joint tenderness, effusion, or edema noted. No calf tenderness. Negative Homans sign bilaterally. NEUROLOGICAL: Awake and alert. Cranial nerves II through XII intact. Motor and sensory grossly within normal limits. Five out of 5 muscle strength in all muscle groups. Normal speech. Laboratory Laboratory Tests Test 04/16/17 13:08 04/16/17 13:15 White Blood Count 11.7 Red Blood Count 4.75 Hemoglobin 13.2 Hematocrit 39.5 Mean Corpuscular Volume 83.2 Mean Corpuscular Hemoglobin 27.9 Mean Corpuscular Hemoglobin Concent 33.5 Red Cell Distribution Width 13.1 Platelet Count 209 Mean Platelet Volume 9.0 Neutrophils (%) (Auto) 77.1 Lymphocytes (%) (Auto) 13.8 Monocytes (%) (Auto) 8.4 Eosinophils (%) (Auto) 0.5 Basophils (%) (Auto) 0.2 Neutrophils # (Auto) 9.0 Lymphocytes # (Auto) 1.6 Monocytes # (Auto) 1.0 Eosinophils # (Auto) 0.1 Basophils # (Auto) 0.0 CBC Comment DIFF FINAL Differential Comment Blood Urea Nitrogen 14 Creatinine 0.83 Random Glucose 86 Calcium Level 8.7 Sodium Level 139 Potassium Level 3.4 Chloride Level 105 Carbon Dioxide Level 28.4 Anion Gap 6 Estimat Glomerular Filtration Rate 89 Monoscreen NEG Lactic Acid Level 1.2 Date/Time Source Procedure Growth Status 04/16/17 13:08 Throat Group A Streptococcus Screen Pending Received Result Diagram: 04/16/17 1308 04/16/17 1308 Imaging Last Impressions Neck CT 04/16/17 0000 Signed Impressions: Service Date/Time: Sunday, April 16, 2017 14:13 - CONCLUSION: Asymmetric tonsillar edema on the right with rounded low density area suspicious for abscess. Well-defined wall not demonstrated on this noncontrast study. Davis Alba MD Caprini VTE Risk Assessment Caprini VTE Risk Assessment: No/Low Risk (score <= 1) Caprini Risk Assessment Model Point Value = 1 Point Value = 2 Point Value = 3 Point Value = 5 Age 41-60 Minor surgery BMI > 25 kg/m2 Swollen legs Varicose veins or History of unexplained or recurrent spontaneous Oral contraceptives or hormone replacement Sepsis (< 1 month) Serious lung disease, including pneumonia (< 1 month) Abnormal pulmonary function Acute myocardial infarction Congestive heart failure (< 1 month) History of inflammatory bowel disease Medical patient at bed rest Age 61-74 Arthroscopic surgery Major open surgery (> 45 min) Laparoscopic surgery (> 45 min) Malignancy Confined to bed (> 72 hours) Immobilizing plaster cast Central venous access Age >= 75 History of VTE Family history of VTE Factor V Leiden Prothrombin [id number] Lupus anticoagulant Anticardiolipin antibodies Elevated serum homocysteine Heparin-induced thrombocytopenia Other congenital or acquired thrombophilia Stroke (< 1 month) Elective arthroplasty Hip, pelvis, or leg fracture Acute spinal cord injury (< 1 month) Prophylaxis Regimen Total Risk Factor Score Risk Level Prophylaxis Regimen 0-1 Low Early ambulation 2 Moderate Order ONE of the following: *Sequential Compression Device (SCD) *Heparin 5000 units SQ BID 3-4 Higher Order ONE of the following medications: *Heparin 5000 units SQ TID *Enoxaparin/Lovenox 40 mg SQ daily (WT < 150 kg, CrCl > 30 mL/min) *Enoxaparin/Lovenox 30 mg SQ daily (WT < 150 kg, CrCl > 10-29 mL/min) *Enoxaparin/Lovenox 30 mg SQ BID (WT < 150 kg, CrCl > 30 mL/min) AND/OR *Sequential Compression Device (SCD) 5 or more Highest Order ONE of the following medications: *Heparin 5000 units SQ TID (Preferred with Epidurals) *Enoxaparin/Lovenox 40 mg SQ daily (WT < 150 kg, CrCl > 30 mL/min) *Enoxaparin/Lovenox 30 mg SQ daily (WT < 150 kg, CrCl > 10-29 mL/min) *Enoxaparin/Lovenox 30 mg SQ BID (WT < 150 kg, CrCl > 30 mL/min) AND *Sequential Compression Device (SCD) Assessment and Plan Assessment and Plan 21-year-old female with no significant past medical history who presents to the emergency department with complaints of sore throat which began 3 days ago. Visited urgent care clinic and received prednisone along with amoxicillin with no improvement in symptoms. Patient with a history of peritonsillar abscess. Right peritonsillar abscess - CT scan revealed soft reviewed, asymmetric tonsillar edema on the right with rounded low density area suspicious for abscess. Well-defined wall not demonstrated on the noncontrast study. - Mild leukocytosis WBCs 11.7, neutrophils 77.1, lactic acid 1.2, temperature on admission 99.2, pulse 111 - Group a strep negative, mono screen negative - ENT consulted Dr. Aleman made aware by ED physician who has made recommendations. - Continue clindamycin 900 mg IV every 8 hours, Decadron 10 mg IV every 8 hours, along with maintenance fluids - Continue close monitoring ? Possibility of draining depending on antibiotic response - Admit to observation unit for now, does not meet sepsis criteria. - Crandall and IV morphine for breakthrough pain DVT prophylaxis - SCDs and Lovenox This note was transcribed by BLAISE Renteria . I, Dr. Yamileth Myrick personally performed the history, physical exam, and medical decision making; and confirmed the accuracy of the information in the transcribed note. Authenticated by Dr. Yamileth Myrick on 04/16/17 at 18:32. Allyssa Andres Apr 16, 2017 18:36 Yamileth Myrick MD Apr 16, 2017 19:20
[2017-04-16 20:20] VITALS: BP 105/65; PULSE 79; RESP 17; TEMP 98.1; O2SAT 99
[2017-04-16] MEDS: DOCUSATE SODIUM 50 MG/SENNA 8.6 MG TAB PO SCH (22:32)
[2017-04-16] MEDS: DEXAMETHASONE SOD PHOS 20 MG/5 ML VIAL IV PUSH SCH (22:33)
[2017-04-16] MEDS: LACTOBACILLUS ACIDOPHILUS TAB PO SCH (22:33)
[2017-04-16] MEDS: SODIUM CHLORIDE 0.9% FLUSH 10 ML FLUSH IV FLUSH SCH (22:33)
[2017-04-17] VITALS (7 sets, daily range): BP systolic 93–131; BP diastolic 55–93; PULSE 63–85; RESP 16–18; TEMP 97.3–98.4; O2SAT 98–100
[2017-04-17] MEDS: SODIUM CHLOR 0.9% 1000 ML INJ 1,000 ML IV SCH ×2 (00:31→14:56)
[2017-04-17] MEDS: CLINDAMYCIN 900 MG/NS PREMIX 50 ML IV SCH ×3 (00:31→16:35)
[2017-04-17] MEDS: DEXAMETHASONE SOD PHOS 20 MG/5 ML VIAL IV PUSH SCH ×3 (06:14→21:41)
[2017-04-17 07:53] LABS: AUTOMATED NEUTROPHIL # 9.2 TH/MM3 (1.8-7.7); BASOPHIL % 0.1 % (0.0-2.0); HEMATOCRIT 36.4 % (35.0-46.0); HEMOGLOBIN 12.2 GM/DL (11.6-15.3); LYMPH % 8.2 % (9.0-44.0); LYMPHOCYTE # 0.9 TH/MM3 (1.0-4.8); MEAN CELL VOLUME 83.1 FL (80.0-100.0); MEAN CORPUSCULAR HEMOGLOBIN 27.9 PG (27.0-34.0); MEAN CORPUSCULAR HGB CONC 33.6 % (32.0-36.0); MEAN PLATELET VOLUME 9.5 FL (7.0-11.0); MONO % 5.1 % (0.0-8.0); MONOCYTE # 0.5 TH/MM3 (0-0.9); NEUT % 86.6 % (16.0-70.0); PLATELET COUNT 216 TH/MM3 (150-450); RED BLOOD COUNT 4.38 MIL/MM3 (4.00-5.30); WHITE BLOOD COUNT 10.6 TH/MM3 (4.0-11.0)
[2017-04-17 08:12] LABS: CALCIUM 8.4 MG/DL (8.5-10.1); CREATININE 0.55 MG/DL (0.50-1.00)
[2017-04-17] MEDS: SODIUM CHLORIDE 0.9% FLUSH 10 ML FLUSH IV FLUSH SCH ×2 (09:00→21:00)
[2017-04-17] MEDS: DOCUSATE SODIUM 50 MG/SENNA 8.6 MG TAB PO SCH ×2 (09:00→21:41)
[2017-04-17] MEDS: LACTOBACILLUS ACIDOPHILUS TAB PO SCH ×2 (09:03→21:41)
--- NOTE | 2017-04-17 09:58 | MB ---
cc: EDI MARQUEZ MD DATE OF CONSULTATION: 04/17/2017 CHIEF COMPLAINT Right peritonsillar abscess. HISTORY OF PRESENT ILLNESS: The patient is a pleasant 21-year-old with a history of peritonsillar abscess, seen roughly December [address] Glover. She healed well from there but she has had subsequent recent peritonsillar abscess for which she was admitted and given clindamycin, Decadron and IV fluids. She is doing 90% better currently. Of note, CAT scan showed a right peritonsillar abscess. PHYSICAL EXAMINATION On examination the patient is well-developed, resting comfortably. She is tolerating full oral diet without significant pain. On flexible fiberoptic laryngoscopy the airway was widely patent, she had minimal erythema right tonsillar pillar with no exudate. ASSESSMENT Resolving right peritonsillar abscess. I recommend the patient stay for another 24 hours. The patient is to receive IV antibiotics and steroids, continue for the next 24 hours. She has had a history of peritonsillar abscess in the past. I recommend with the patient following discharge for her to be sent home with 2 weeks of clindamycin 300 mg p.o. t.i.d. for 14 days. I also discussed with the patient, when she is discharged, she will be discharged with Medrol Dosepak. Of note, the patient has been smoking electronic cigarettes for roughly 3 months now, per her history, this coincidental with the period of time where she started having peritonsillar abscesses. I recommend the patient reevaluate using tobacco products. Thank you for this consultation. The patient to follow up with us as an outpatient. We discussed having a tonsillectomy done in the future. She will followup with either me or Dr. Glover. Edi Marquez MD CCP/TLL /8:45 AM /9:40 AM
--- NOTE | 2017-04-17 10:41 | HHI.PR ---
Subjective Remarks Follow-up peritonsillar abscess. States she is feeling much better denies throat pain and tolerating diet. ENT wants to keep patient another day for IV antibiotics and IV steroids. Discussed With nursing staff Objective Vitals Vital Signs Date Time Temp Pulse Resp B/P (MAP) Pulse Ox O2 Delivery O2 Flow Rate FiO2 04/17/17 09:53 99 21 04/17/17 07:27 97.9 63 16 93/55 (68) 99 04/17/17 04:21 98.4 76 17 104/62 (76) 100 04/16/17 20:20 98.1 79 17 105/65 (78) 99 04/16/17 16:52 98.0 83 18 105/69 (81) 100 04/16/17 16:39 04/16/17 15:49 76 18 104/62 (76) 98 Room Air 04/16/17 12:38 18 04/16/17 12:26 99.2 111 16 108/80 (89) 99 I/O 04/16/17 04/16/17 04/16/17 04/17/17 04/17/17 04/17/17 07:00 15:00 23:00 07:00 15:00 23:00 Intake Total 1000 ml 600 ml 350 ml Balance 1000 ml 600 ml 350 ml Intake Oral 350 ml IV Total 1000 ml 600 ml # Voids 2 Result Diagram: 04/17/17 0655 04/17/17 0655 Imaging Last Impressions Neck CT 04/16/17 0000 Signed Impressions: Service Date/Time: Sunday, April 16, 2017 14:13 - CONCLUSION: Asymmetric tonsillar edema on the right with rounded low density area suspicious for abscess. Well-defined wall not demonstrated on this noncontrast study. Davis Alba MD Objective Remarks GENERAL: This is a well-nourished, well-developed patient, in no apparent distress. SKIN: No rashes, ecchymoses or lesions. Cool and dry. ENT: Nose without bleeding, purulent drainage or septal hematoma. Throat without erythema, enlarged bilateral tonsils, R>L no visible exudate. Uvula midline. Airway patent. NECK: Trachea midline. No JVD or meningeal signs. CARDIOVASCULAR: Regular rate and rhythm without murmurs, gallops, or rubs. RESPIRATORY: Clear to auscultation. Breath sounds equal bilaterally. No wheezes , rales, or rhonchi. GASTROINTESTINAL: Abdomen soft, non-tender, nondistended. No guarding. MUSCULOSKELETAL: Extremities without clubbing, cyanosis, or edema. No joint tenderness, effusion, or edema noted. No calf tenderness. Negative Homans sign bilaterally. NEUROLOGICAL: Awake and alert. Cranial nerves II through XII intact. Motor and sensory grossly within normal limits. Five out of 5 muscle strength in all muscle groups. Normal speech. Procedures none A/P Problem List: (1) Peritonsillar abscess ICD Code: J36 - Peritonsillar abscess Status: Acute Assessment and Plan 21-year-old female with no significant past medical history who presents to the emergency department with complaints of sore throat which began 3 days ago. Visited urgent care clinic and received prednisone along with amoxicillin with no improvement in symptoms. Patient with a history of peritonsillar abscess. Right peritonsillar abscess with failed outpatient therapy - CT scan revealed soft reviewed, asymmetric tonsillar edema on the right with rounded low density area suspicious for abscess. Well-defined wall not demonstrated on the noncontrast study. - Mild leukocytosis WBCs 11.7, neutrophils 77.1, lactic acid 1.2, temperature on admission 99.2, pulse 111 - Group a strep negative, mono screen negative - ENT consulted Dr. Aleman made aware by ED physician who has made recommendations. - Continue clindamycin 900 mg IV every 8 hours, Decadron 10 mg IV every 8 hours, along with maintenance fluids - Continue close monitoring - Admit to observation unit for now, does not meet sepsis criteria. - Pace and IV morphine for breakthrough pain DVT prophylaxis - SCDs and Lovenox Discharge Planning Possible discharge in the morning Kojo Villa MD Apr 17, 2017 10:41
[2017-04-18] MEDS: CLINDAMYCIN 900 MG/NS PREMIX 50 ML IV SCH ×2 (00:07→08:44)
[2017-04-18] MEDS: SODIUM CHLOR 0.9% 1000 ML INJ 1,000 ML IV SCH (00:07)
[2017-04-18 00:16] VITALS: BP 110/72; PULSE 62; RESP 18; TEMP 97.5; O2SAT 99
[2017-04-18 04:24] VITALS: BP 125/75; PULSE 62; RESP 18; TEMP 97.6; O2SAT 99
[2017-04-18] MEDS: DEXAMETHASONE SOD PHOS 20 MG/5 ML VIAL IV PUSH SCH (05:54)
[2017-04-18 07:56] VITALS: BP 117/73; PULSE 64; RESP 19; TEMP 97.8; O2SAT 100
[2017-04-18] MEDS: LACTOBACILLUS ACIDOPHILUS TAB PO SCH (08:43)
[2017-04-18] MEDS: SODIUM CHLORIDE 0.9% FLUSH 10 ML FLUSH IV FLUSH SCH (08:43)
[2017-04-18] MEDS: DOCUSATE SODIUM 50 MG/SENNA 8.6 MG TAB PO SCH (08:43)
[2017-04-18] MEDS ORDERED: CLIN300C5 PO (08:50)
[2017-04-18] MEDS ORDERED: MEDR4PAK PO (08:50)
[2017-04-18] MEDS ORDERED: LACTCHW3 CHEW (08:50)
--- NOTE | 2017-04-18 08:50 | HHI.DCPOC ---
Discharge Care Plan Diagnosis: (1) Peritonsillar abscess Goals to Promote Your Health * To prevent worsening of your condition and complications * To maintain your health at the optimal level Directions to Meet Your Goals Take your medications as prescribed Follow your dietary instruction Follow activity as directed Keep your appointments as scheduled Take your immunizations and boosters as scheduled If your symptoms worsen call your PCP, if no PCP go to Urgent Care Center or Emergency Room Smoking is Dangerous to Your Health. Avoid second hand smoke Call the 24-hour hour crisis hotline for domestic abuse at Cheryl Poole PA-C Apr 18, 2017 8:50 am
--- NOTE | 2017-04-18 09:10 | HHI.PR ---
Subjective Remarks Follow-up peritonsillar abscess. The patient reports feeling better again today. She has been able to tolerate oral intake. Has minimal odynophagia, much improved. Denies fevers/chills. She wants to go home. She plans to follow up with ENT for tonsillectomy. Objective Vitals Vital Signs Date Time Temp Pulse Resp B/P (MAP) Pulse Ox O2 Delivery O2 Flow Rate FiO2 04/18/17 07:56 97.8 64 19 117/73 (88) 100 04/18/17 04:24 97.6 62 18 125/75 (92) 99 04/18/17 00:16 97.5 62 18 110/72 (85) 99 04/17/17 22:57 98 21 04/17/17 20:04 97.4 65 18 107/67 (80) 100 04/17/17 15:48 97.3 85 16 118/77 (91) 99 04/17/17 11:54 98.0 68 18 131/93 (106) 100 04/17/17 09:53 99 21 I/O 04/17/17 04/17/17 04/17/17 04/18/17 04/18/17 04/18/17 07:00 15:00 23:00 07:00 15:00 23:00 Intake Total 1350 ml 1050 ml 50 ml Balance 1350 ml 1050 ml 50 ml Intake Oral 350 ml IV Total 1000 ml 1050 ml 50 ml # Voids 2 2 # Bowel Movements 1 Result Diagram: 04/17/17 0655 04/17/17 0655 Imaging Last Impressions Neck CT 04/16/17 0000 Signed Impressions: Service Date/Time: Sunday, April 16, 2017 14:13 - CONCLUSION: Asymmetric tonsillar edema on the right with rounded low density area suspicious for abscess. Well-defined wall not demonstrated on this noncontrast study. Davis Alba MD Objective Remarks GENERAL: Well-nourished, well-developed young female patient in [facility]. SKIN: Warm and dry. No rash. HEENT: Normocephalic. Atraumatic.Pupils equal and round. Mucous membranes pink and moist. Posterior oropharynx with mild tonsillar edema, R >L, no exudate or erythema. Uvula midline. NECK: Supple. Trachea midline. CARDIOVASCULAR: Regular rate and rhythm. S1, S2 noted. No murmur appreciated. RESPIRATORY: No accessory muscle use. Clear to auscultation. Breath sounds equal bilaterally. GASTROINTESTINAL: Abdomen soft, non-tender, nondistended. Normoactive bowel sounds x4. MUSCULOSKELETAL: No obvious deformities. Extremities without clubbing, cyanosis , or edema. NEUROLOGICAL: Awake and alert. No obvious cranial nerve deficits. Motor grossly within normal limits. Normal speech. PSYCHIATRIC: Appropriate mood and affect; insight and judgment normal. Procedures none Medications and IVs Current Medications Medications (Trade) Dose Ordered Sig/Tamanna Route Start Time Stop Time Status Last Admin Clindamycin/ Sodium Chloride 50 ml @ 100 mls/hr Q8H IV 04/17/17 00:00 04/18/17 08:44 (Decadron Inj) 10 mg Q8HR IV PUSH 04/16/17 22:00 04/18/17 05:54 Sodium Chloride 1,000 ml @ 100 mls/hr Q10H IV 04/16/17 16:30 04/18/17 00:07 (NS Flush) 2 ml UNSCH PRN IV FLUSH 04/16/17 16:00 04/17/17 06:14 (NS Flush) 2 ml BID IV FLUSH 04/16/17 21:00 04/18/17 08:43 (Tylenol) 650 mg Q4H PRN PO 04/16/17 16:00 (Zofran Inj) 4 mg Q6H PRN IVP 04/16/17 16:00 (Morphine Inj) 2 mg Q4H PRN IV PUSH 04/16/17 16:00 (Narcan Inj) 0.4 mg UNSCH PRN IV PUSH 04/16/17 16:00 (Kristal-Colace) 1 tab BID PO 04/16/17 21:00 04/18/17 08:43 (Milk Of Magnesia Liq) 30 ml Q12H PRN PO 04/16/17 16:00 (Senokot) 17.2 mg Q12H PRN PO 04/16/17 16:00 (Dulcolax Supp) 10 mg DAILY PRN RECTAL 04/16/17 16:00 (Lactulose Liq) 30 ml DAILY PRN PO 04/16/17 16:00 (Lactinex) 1 tab Q12HR PO 04/16/17 21:00 04/18/17 08:43 ([place] 5-325 Mg) 1 tab Q4H PRN PO 04/16/17 16:00 A/P Problem List: (1) Peritonsillar abscess ICD Code: J36 - Peritonsillar abscess Status: Acute Assessment and Plan 21-year-old female with no significant past medical history who presents to the ED with 3 day history of sore throat. Visited urgent care clinic and received prednisone along with amoxicillin with no improvement in symptoms. Patient with a history of peritonsillar abscess. Right peritonsillar abscess, failed outpatient therapy - CT neck reviewed, showed asymmetric tonsillar edema on the right with rounded low density area suspicious for abscess. Well-defined wall not demonstrated on the noncontrast study. - Mild leukocytosis WBCs 11.7, neutrophils 77.1, lactic acid 1.2, temperature on admission 99.2, pulse 111 - Group a strep negative, mono screen negative - ENT consulted, discussed with Dr. Aleman, appreciate recommendations - Continue clindamycin 900 mg IV every 8 hours, Decadron 10 mg IV every 8 hours, along with maintenance fluids - [place] and IV morphine for breakthrough pain - Discussed with Dr. Aleman, ok to discharge today on Clinda [id number] and Medrol dosepak - Symptoms much improved, tolerating oral intake - Patient plans to follow up with ENT as outpatient for tonsillectomy DVT prophylaxis - SCDs and Lovenox Discharge Planning Discharge patient to home Condition on discharge: Improved Regular/Soft Diet as tolerated Ad Veronique activity Rx written: Clinda 300mg tid [id number], Medrol dosepak, lactinex Follow-up with primary care physician and ENT within 1 week Cheryl Poole PA-C Apr 18, 2017 9:10 am
== END 2017-04-18 10:25 | disposition home or self-care (01) ==
LOC: NEPD 12:24 → NEDA 15:51 → NEPHCDU 16:40
PROVIDERS: ADMIT Hospitalist; ATTEND Hospitalist
DX: J36 Peritonsillar abscess (principal); R49.0 Dysphonia; R05 Cough; Z91.041 Radiographic dye allergy status; F17.290 Nicotine dependence, other tobacco product, uncomplicated
CPT/HCPCS: 70490; 80048; 83605; 84703; 85025; 86308; 87081; 87880; 96361; 96372; 96374; 96376; 99285; G0378; J1100; J1650; J7030; J7040

== ENCOUNTER 2017-07-17 00:31 | Emergency (ER) | payer BC ==
[~2017-07-17] VITALS: Ht 154.9 cm; Wt 50.0 kg
[2017-07-17 00:41] VITALS: BP 136/74; PULSE 100; RESP 16; TEMP 99.2; O2SAT 99
[2017-07-17] MEDS ORDERED: KETOROLAC TROMETHAMINE 30 MG/ML (IVP) VIAL IV PUSH ONE (01:30)
[2017-07-17] MEDS ORDERED: SODIUM CHLOR 0.9% 1000 ML INJ 1,000 ML IV ONE (01:30)
[2017-07-17] MEDS ORDERED: AMPICILLIN-SULBACTAM INJ 1,500 MG in SODIUM CHLORIDE 0.9% INJ 100 ML IV ONE (01:30)
[2017-07-17] MEDS ORDERED: DEXAMETHASONE SOD PHOS 4 MG/ML VIAL IV PUSH ONE (01:30)
[2017-07-17 01:40] VITALS: BP 126/75; PULSE 96; RESP 16; O2SAT 100
--- NOTE | 2017-07-17 01:46 | PD ---
HPI Chief Complaint: ENT Complaint Time Seen by Provider: 01:02 Travel History International Travel<30 days: No Contact w/Intl Traveler<30days: No Traveled to known affect area: No History of Present Illness HPI The patient is a 21-year-old female who presents to the emergency department 4 sore throat and swelling. The patient has a history of repetitive tonsillitis and peritonsillar abscess with previous admission. The patient notes increasing symptoms of the last 2 days with swelling in the posterior aspect of her throat, tenderness on the right aspect that radiates up to the right ear and down into the right neck. She does have mild discomfort with swallowing. She does note subjective fevers. She has been seen by Dr. Glover in the past regarding her tonsillitis and possible future tonsillectomy, however, is not currently scheduled to undergo surgery. Symptoms are moderate. She denies any chest pain, shortness breath, nausea, vomiting, or abdominal pain. PFSH Past Medical History Blood Disorders: No Cancer: No Cardiovascular Problems: No Endocrine: No Gastrointestinal Disorders: No Genitourinary: No Immune Disorder: No Implanted Vascular Access Dvce: No Musculoskeletal: No Neurologic: No Psychiatric: No Reproductive: No Respiratory: No Immunizations Current: Yes Tetanus Vaccination: < 5 Years Influenza Vaccination: No ?: Not LMP: on brith control every 3 months Past Surgical History Surgical History: No Previous Surgery Other Surgery: No Social History Alcohol Use: Yes (SOCIALLY) Tobacco Use: No Substance Use: No Allergies-Medications (Allergen,Severity, Reaction): Coded Allergies: Iodinated Contrast- Oral and IV Dye (Verified Allergy, Severe, Hives, 07/17) Reported Meds & Prescriptions Reported Meds & Active Scripts Active Medrol Dosepak (Methylprednisolone) 4 Mg Dspk 4 Mg PO DIRECTED Per Pharmacist direction Lactinex (Lactobacillus Acidophilus) 1 Chew 1 Tab CHEW BID 14 Days Clindamycin (Clindamycin HCl) 300 Mg Cap 300 Mg PO TID Reported [ Control] 1 Tab PO DAILY Review of Systems Except as stated in HPI: all other systems reviewed are Neg General / Constitutional: Positive: Fever HENT: Positive: Sore Throat, Neck Pain, Earache Cardiovascular: No: Chest Pain or Discomfort Respiratory: No: Shortness of Breath Gastrointestinal: No: Nausea, Vomiting, Abdominal Pain Genitourinary: No: Dysuria Physical Exam Narrative GENERAL: Awake, alert, nontoxic-appearing 21-year-old female who appears her stated age and is in no acute respiratory distress. SKIN: Focused skin assessment warm/dry. HEAD: Atraumatic. Normocephalic. EYES: Pupils equal and round. No scleral icterus. No injection or drainage. ENT: Oropharynx reveals enlarged tonsils bilateral with erythema. Mild white exudate on the right tonsil, no obvious peritonsillar abscess. TMs are translucent. EACs are clear. NECK: Trachea midline. No JVD. Bilateral anterior cervical lymphadenopathy, tender on the right aspect. CARDIOVASCULAR: Regular, tachycardic with a heart rate of 100. RESPIRATORY: No accessory muscle use. Clear to auscultation. Breath sounds equal bilaterally. GASTROINTESTINAL: Abdomen soft, non-tender, nondistended. MUSCULOSKELETAL: No obvious deformities. No clubbing. No cyanosis. No edema. NEUROLOGICAL: Awake and alert. No obvious cranial nerve deficits. Motor grossly within normal limits. Normal speech. PSYCHIATRIC: Appropriate mood and affect; insight and judgment normal. Data Data Last Documented VS Vital Signs Date Time Temp Pulse Resp B/P (MAP) Pulse Ox O2 Delivery O2 Flow Rate FiO2 07/17/17 01:40 96 16 126/75 (92) 100 Room Air 07/17/17 00:41 99.2 Orders Orders Ampicillin-Sulbactam Inj (Unasyn Inj) (07/17/17 01:30) Dexamethasone Inj (Decadron Inj) (07/17/17 01:30) Ketorolac Inj (Toradol Inj) (07/17/17 01:30) Sodium Chlor 0.9% 1000 Ml Inj (Ns 1000 M (07/17/17 01:30) [facility] Medical Decision Making Medical Screen Exam Complete: Yes Emergency Medical Condition: Yes Medical Record Reviewed: Yes Differential Diagnosis Differential diagnosis includes tonsillitis, strep pharyngitis, peritonsillar abscess, URI, exudative tonsillitis, viral tonsillitis, mononucleosis. Narrative Course IV was established and the patient was placed on cardiac telemetry monitoring and continuous pulse oximetry monitoring. The patient was administered Unasyn, Decadron, Toradol, and IV fluids. The patient's symptoms have improved, the patient be discharged home on Augmentin and Medrol Dosepak. Diagnosis Primary Impression: Tonsillitis Patient Instructions: General Instructions Additional Instructions: School excuse for 2 days. Medications as directed. Follow-up with her primary physician. Return if symptoms worsen or progress. Follow-up with your ENT. Med/Other Pt SpecificInfo: Prescription(s) given Scripts Methylprednisolone Dosepak (Medrol Dosepak) 4 Mg Dspk 4 MG PO DIRECTED, #1 DSPK 0 Refills Per Pharmacist direction Prov: Paul Morely MD 07/17/17 Amoxicillin-Clavulanate (Augmentin) 875-125 Mg Tab 1 TAB PO BID for Infection for 10 Days, #20 TAB 0 Refills Prov: Paul Morley MD 07/17/17 Disposition: 01 DISCHARGE HOME Condition: Stable Paul Morley MD Jul 17, 2017 01:46
[2017-07-17] MEDS ORDERED: MEDR4PAK PO (02:56)
[2017-07-17] MEDS ORDERED: AUGM875T3 PO (02:56)
== END 2017-07-17 03:09 | disposition home or self-care (01) ==
LOC: NEPE 00:31
DX: J03.90 Acute tonsillitis, unspecified (principal); R00.0 Tachycardia, unspecified; Z79.3 Long term (current) use of hormonal contraceptives; Z79.899 Other long term (current) drug therapy
CPT/HCPCS: 96365; 96375; 99284; J0295; J1100; J1885; J7030